=== PATIENT | female | born 1945 | race African-American/Black ===

== ENCOUNTER 2018-02-04 05:09 | Emergency (ER) | payer SELFPAY ==
[~2018-02-04] VITALS: Ht 154.9 cm; Wt 45.0 kg
[2018-02-04] MEDS ORDERED: LORAZEPAM 2MG/ML CPJ IM ONE (09:30)
[2018-02-04 09:57] LABS: HEMATOCRIT. 42.1 % (36.0-48.0); HEMOGLOBIN. 14.3 g/dL (12.0-16.0); MEAN CORPUSCULAR HEMOGLOBIN 35.1 pg (28.0-32.0); MEAN CORPUSCULAR VOLUME 103.1 fL (81.0-99.0); MEAN PLATELET VOLUME 7.6 fl (7.4-10.4); PLATELET 452 x1000/uL (130-400); RED BLOOD CELL COUNT 4.08 mill/uL (4.2-5.4); RED CELL DISTRIBUTION WIDTH 16.9 % (11.6-14.6)
[2018-02-04 09:58] LABS: CLARITY URINE CLEAR (CLEAR); COLOR URINE YELLOW (YELLOW); KETONES URINE NEGATIVE (NEGATIVE); LEUKOCYTE ESTERASE URINE NEGATIVE (NEGATIVE); NITRITE URINE NEGATIVE (NEGATIVE); OCCULT BLOOD URINE NEGATIVE (NEGATIVE); PROTEIN URINE NEGATIVE (NEGATIVE); SPECIFIC GRAVITY URINE 1.012 (1.005-1.030)
[2018-02-04 10:01] LABS: CHLORIDE 108 mEq/L (98-107)
[2018-02-04 10:05] LABS: ETHANOL BLOOD < 10 mg/dL
[2018-02-04 10:23] LABS: PLATELET ESTIMATE INCREASED
[2018-02-04 11:55] LABS: *AMPHETAMINES SCREEN URINE NEGATIVE (NEGATIVE); *BARBITURATES SCREEN URINE NEGATIVE (NEGATIVE); *BENZODIAZEPINES SCREEN URINE NEGATIVE (NEGATIVE); *COCAINE SCREEN URINE NEGATIVE (NEGATIVE); CANNABINOID URINE SCREEN NEGATIVE (NEGATIVE); METHADONE URINE SCREEN NEGATIVE (NEGATIVE); OPIATES URINE SCREEN NEGATIVE (NEGATIVE); PHENCYCLIDINE URINE SCREEN NEGATIVE (NEGATIVE)
[2018-02-04 15:00] VITALS: BP 148/86
== END 2018-02-04 16:00 | disposition home or self-care (01) ==
LOC: ER 05:09 → SUATTDRO 12:55 → ER 16:00
PROVIDERS: ATTEND Internal Medicine Critical Care Medicine
DX: F29 Unspecified psychosis not due to a substance or known physiological condition (principal); R45.1 Restlessness and agitation; G30.9 Alzheimer's disease, unspecified; F02.80 Dementia in other diseases classified elsewhere, unspecified severity, without behavioral disturbance, psychotic disturbance, mood disturbance, and anxiety; I51.9 Heart disease, unspecified; I10 Essential (primary) hypertension; R44.0 Auditory hallucinations
CPT/HCPCS: 36415; 80048; 80305; 80307; 80329; 81003; 85025; 96372; 99284; G0482; J2060